=== PATIENT | female | born 1950 | race Caucasian/White ===

== ENCOUNTER 2016-09-18 10:57 | Inpatient (IN) | payer MEDICARE, MEDICAID ==
[2016-09-18 12:33] LABS: ABSOLUTE LYMPHOCYTES (AUTO) 1.7 10^3/uL (0.5-4.7); ABSOLUTE MONOCYTES (AUTO) 0.5 10^3/uL (0.1-1.4); BASOPHILS % (AUTO) 0.4 % (0-2); EOSINOPHILS % (AUTO) 0.3 % (0-6); HEMATOCRIT 42.4 % (36.0-47.0); HEMOGLOBIN 14.3 g/dL (12.0-15.5); HGB HCT DIFFERENCE 0.5; LYMPHOCYTES % (AUTO) 12.7 % (13-45); MEAN CORPUSCULAR HEMOGLOBIN 31.4 pg (27.0-33.4); MEAN CORPUSCULAR HGB CONC 33.8 g/dL (32.0-36.0); MEAN CORPUSCULAR VOLUME 93 fl (80-97); MONOCYTES % (AUTO) 3.8 % (3-13); RED BLOOD COUNT 4.56 10^6/uL (3.72-5.28); RED CELL DISTRIBUTION WIDTH 13.7 % (11.5-14.0); SEGMENTED NEUTROPHILS % (AUTO) 82.8 % (42-78); WHITE BLOOD COUNT 13.3 10^3/uL (4.0-10.5)
[2016-09-18 12:40] LABS: ALANINE AMINOTRANSFERASE 32 U/L (9-52); ALBUMIN 4.3 g/dL (3.5-5.0); ALKALINE PHOSPHATASE 130 U/L (38-126); ANION GAP 12 (5-19); ASPARTATE AMINO TRANSFERASE 48 U/L (14-36); BILIRUBIN,TOTAL 1.2 mg/dL (0.2-1.3); BLOOD UREA NITROGEN 8 mg/dL (7-20); CALCIUM 9.7 mg/dL (8.4-10.2); CARBON DIOXIDE 27 mmol/L (22-30); CHLORIDE 106 mmol/L (98-107); CREATINE KINASE 924 U/L (30-135); GLUCOSE 101 mg/dL (75-110); POTASSIUM 4.1 mmol/L (3.6-5.0); SODIUM 144.9 mmol/L (137-145); TOTAL PROTEIN 7.1 g/dL (6.3-8.2)
[2016-09-18 12:43] LABS: PROTHROMBIN TIME 12.1 SEC (11.4-15.4)
[2016-09-18 12:51] LABS: CREATINE KINASE MB 7.35 ng/mL (<4.55); TROPONIN I 0.022 ng/mL
[2016-09-18] MEDS ORDERED: NORMAL SALINE 1000 ML 500 ML IV ONE (13:32)
[2016-09-18 14:54] LABS: APPEARANCE,URINE CLEAR; BILIRUBIN,URINE NEGATIVE (NEGATIVE); GLUCOSE, URINE NEGATIVE (NEGATIVE); KETONES,URINE TRACE mg/dL (NEGATIVE); LEUKOCYTE ESTERASE,URINE NEGATIVE (NEGATIVE); NITRITE,URINE NEGATIVE (NEGATIVE); PROTEIN,URINE NEGATIVE (NEGATIVE); URINE SPECIFIC GRAVITY 1.012; UROBILINOGEN,URINE NEGATIVE mg/dL (<2.0)
--- NOTE | 2016-09-18 15:58 | ER Document Report ---
ED General - General Chief Complaint: Fall Stated Complaint: FALL,WEAKNESS TRAVEL OUTSIDE OF THE [place] IN LAST 30 DAYS: No - HPI Patient complains to provider of: multiple falls Notes: Patient coming in for evaluation of multiple falls. Family patient has fallen 3 times the last week patient states that she will bed night prior and was unable to get up therefore leg and the floor for quite some time. Patient denies any loss of consciousness. Patient denies any head pain chest pain abdominal pain prior to arrival the fall. Patient has had recent admissions here to the hospital with stress testing showing no cardiac ischemia or concerning etiology. States her PCPs of she may denies any recent changes to medications. Denies any blood thinning medications. Current family at bedside patient does have a walker that she uses at home. Patient states that she has not been using a walker. - Related Data Allergies/Adverse Reactions: No Known Allergies Allergy (Unverified 05/29/16 18:33) Past Medical History - Social History Smoking Status: Unknown if Ever Smoked Family History: Arthritis, CAD, CVA, DM, Hyperlipidemia, Hypertension, Malignancy, Thyroid Disfunction - Past Medical History Cardiac Medical History: Reports: Hx Hypercholesterolemia, Hx Hypertension Denies: Hx Coronary Artery Disease, Hx Heart Attack Pulmonary Medical History: Denies: Hx Asthma, Hx Bronchitis, Hx COPD, Hx Pneumonia Neurological Medical History: Denies: Hx Cerebrovascular Accident, Hx Seizures Musculoskeltal Medical History: Reports Hx Arthritis - ddd, Reports Hx Musculoskeletal Deformity Psychiatric Medical History: Reports: Hx Anxiety, Hx Attention Deficit Hyperactivity Disorder, Hx Bipolar Disorder, Hx Depression Past Surgical History: Reports: Hx Orthopedic Surgery - bunion surgery - Immunizations Hx Diphtheria, Pertussis, Tetanus Vaccination: No Review of Systems - Review of Systems Constitutional: No symptoms reported EENT: No symptoms reported Cardiovascular: No symptoms reported Respiratory: No symptoms reported Gastrointestinal: No symptoms reported Genitourinary: No symptoms reported Female Genitourinary: No symptoms reported Musculoskeletal: Other - Fall Skin: No symptoms reported Hematologic/Lymphatic: No symptoms reported Neurological/Psychological: No symptoms reported Physical Exam - Vital signs Vitals: Temp Pulse Resp BP Pulse Ox 97.5 F 63 20 95/57 L 95 09/18/16 11:10 09/18/16 11:10 09/18/16 11:10 09/18/16 11:10 09/18/16 11:10 Interpretation: Normal - General General appearance: Appears well, Alert - HEENT Head: Normocephalic, Abrasions - Patient with abrasions to the right orbit and the bridge of the nose. Eyes: Normal Pupils: PERRL - Respiratory Respiratory status: No respiratory distress Chest status: Nontender Breath sounds: Normal Chest palpation: Normal - Cardiovascular Rhythm: Regular Heart sounds: Normal auscultation Murmur: No - Abdominal Inspection: Normal Distension: No distension Bowel sounds: Normal Tenderness: Nontender Organomegaly: No organomegaly - Back Back: Normal, Nontender - Extremities General upper extremity: Normal inspection, Nontender, Normal color, Normal ROM , Normal temperature General lower extremity: Normal inspection, Nontender, Normal color, Normal ROM , Normal temperature, Normal weight bearing, Other - Patient's gait is unsteady without her walker here in the ER.. No: Gerhard's sign - Neurological Neuro grossly intact: Yes Cognition: Normal Orientation: AAOx4 [place] Coma Scale Eye Opening: Spontaneous Unique Coma Scale Verbal: Oriented [place] Coma Scale Motor: Obeys Commands [place] Coma Scale Total: 15 Speech: Normal Motor strength normal: LUE, RUE, LLE, RLE Sensory: Normal - Psychological Associated symptoms: Normal affect, Normal mood - Skin Skin Temperature: Warm Skin Moisture: Dry Skin Color: Normal Course - Re-evaluation Re-evalutation: 09/18/16 15:56 Patient coming in for evaluation after multiple falls. Patient does have an unsteady gait doesn't admission not been using her walker. Patient does live alone. Long discussion with friend of family at bedside recommended patient be discharged home with that there is no acute pathology on her head CT chest x- ray lab work and urinalysis. Patient case was discussed with our child protective services social worker here in the ER and will attempt to set up home health care for the patient home. 09/18/16 16:17 Now discussion with family unable to more likely take your the patient home. Patient does live by herself. We have initiated social work evaluation at home however facility unsafe to patient to go home this time the family members available did discuss with hospitalist will admit for observation tonight - Vital Signs Vital signs: Temp Pulse Resp BP Pulse Ox 97.5 F 63 13 113/77 96 09/18/16 11:10 09/18/16 11:10 09/18/16 15:00 09/18/16 14:01 09/18/16 15:00 - Laboratory Result Diagrams: 09/18/16 11:10 09/18/16 11:10 Laboratory results interpreted by me: 09/18/16 09/18/16 09/18/16 11:10 11:10 11:10 WBC 13.3 H Seg Neutrophils % 82.8 H Lymphocytes % 12.7 L Absolute Neutrophils 11.0 H AST 48 H Alkaline Phosphatase 130 H Creatine Kinase 924 H CK-MB (CK-2) 7.35 H Urine Ketones Urine Blood 09/18/16 13:35 WBC Seg Neutrophils % Lymphocytes % Absolute Neutrophils AST Alkaline Phosphatase Creatine Kinase CK-MB (CK-2) Urine Ketones TRACE H Urine Blood SMALL H Discharge - Discharge Clinical Impression: Multiple falls, Gait instability Facial abrasion Qualifiers: Encounter type: initial encounter Qualified Code(s): S00.81XA - Abrasion of other part of head, initial encounter Condition: Fair Disposition: ADMITTED OBSERVATION Admitting Provider: Hospitalist - [facility] Admitted: Medical Floor Referrals: CARMEN CHRISTINE DO [Primary Care Provider] - Follow up as needed
--- NOTE | 2016-09-18 18:57 | PDOC H&P ---
History of Present Illness Admission Date/PCP: 09/18/16 16:56 CARMEN CHRISTINE Patient complains of: Generalized weakness multiple falls. Unsteady gait History of Present Illness: RAYNA NERIQUEZ is a 66 year old female With a known history of hypertension hyperlipidemia Presents to the ED with her history of multiple falls Yesterday patient felt outside in the street and scraped her face Patient states there was no loss of consciousness but she felt extremely weak and unsteady Patient had been laying on the couch for the past 3 days Upon evaluation in the ED patient was diagnosed of rhabdomyolysis with a CPK of 900, and the urine was suggestive of UTI urinary tract infection Patient was admitted for hydration, antibiotics and PT evaluation Past Medical History Cardiac Medical History: Reports: Hyperlipidema, Hypertension Denies: Coronary Artery Disease, Myocardial Infarction Pulmonary Medical History: Denies: Asthma, Bronchitis, Chronic Obstructive Pulmonary Disease (COPD), Pneumonia Neurological Medical History: Denies: Seizures Musculoskeltal Medical History: Reports: Arthritis - ddd Psychiatric Medical History: Reports: Attention Deficit Hyperactivity Disorder, Bipolar Disorder, Depression Hematology: Denies: Anemia Past Surgical History Past Surgical History: Reports: Orthopedic Surgery - bunion surgery Social History Information Source: Patient Lives with: Alone Smoking Status: Current Every Day Smoker Cigarettes Packs Per Day: 10 Frequency of Alcohol Use: None Hx Recreational Drug Use: No Drugs: None Family History Family History: Arthritis, CAD, CVA, DM, Hyperlipidemia, Hypertension, Malignancy, Thyroid Disfunction Parental Family History Reviewed: Yes Children Family History Reviewed: Yes Sibling(s) Family History Reviewed.: Yes Medication/Allergy Home Medications: Aripiprazole [Abilify 15 mg Tablet] 15 mg PO QHS 09/18/16 Aspirin [Aspirin 81 mg Chewable Tablet] 81 mg PO DAILY 09/18/16 Atorvastatin Calcium [Lipitor 40 mg Tablet] 40 mg PO DAILY 09/18/16 Clonazepam [Klonopin] 1 mg PO TID 09/18/16 Hydrochlorothiazide [Hydrodiuril 25 mg Tablet] 25 mg PO DAILY 09/18/16 Trazodone HCl [Desyrel] 200 mg PO QHS 09/18/16 Vortioxetine Hydrobromide [Brintellix] 10 mg PO QAM 09/18/16 Allergies/Adverse Reactions: No Known Allergies Allergy (Unverified 05/29/16 18:33) Review of Systems Constitutional: PRESENT: fatigue, weakness. ABSENT: anorexia, fever(s), night sweats Eyes: ABSENT: visual disturbances Ears: ABSENT: hearing changes Nose, Mouth, and Throat: ABSENT: as per HPI, headache(s), mouth pain, sore throat, vertigo, other Cardiovascular: ABSENT: chest pain, dyspnea on exertion, edema, orthropnea, palpitations Respiratory: ABSENT: cough, hemoptysis Genitourinary: ABSENT: dysuria, hematuria Musculoskeletal: PRESENT: muscle weakness Integumentary: ABSENT: rash, wounds Neurological: PRESENT: abnormal gait, frequent falls, lack of coordination. ABSENT: focal weakness Endocrine: ABSENT: cold intolerance, heat intolerance, polydipsia, polyuria Hematologic/Lymphatic: ABSENT: easy bleeding, easy bruising Physical Exam Vital Signs: Temp Pulse Resp BP Pulse Ox 97.5 F 63 14 102/61 97 09/18/16 11:10 09/18/16 11:10 09/18/16 18:00 09/18/16 15:01 09/18/16 18:00 General appearance: PRESENT: no acute distress, well-developed, well-nourished Head exam: PRESENT: other - Multiple abrasions , ecchymosis visualized on the nose and in the right periorbital area Mouth exam: PRESENT: moist, tongue midline Neck exam: ABSENT: carotid bruit, JVD, lymphadenopathy, thyromegaly Respiratory exam: PRESENT: clear to auscultation kaycee. ABSENT: rales, rhonchi, wheezes Cardiovascular exam: PRESENT: RRR. ABSENT: diastolic murmur, rubs, systolic murmur Pulses: PRESENT: normal dorsalis pedis pul GI/Abdominal exam: PRESENT: normal bowel sounds, soft. ABSENT: distended, guarding, mass, organolmegaly, rebound, tenderness Extremities exam: PRESENT: full ROM. ABSENT: calf tenderness, clubbing, pedal edema Neurological exam: PRESENT: alert, awake, oriented to person, oriented to place , oriented to time, oriented to situation, CN II-XII grossly intact. ABSENT: motor sensory deficit Psychiatric exam: PRESENT: appropriate affect, other - Maybe appears a little sluggish Skin exam: PRESENT: abrasion, other - Ecchymosis of the face see above Results Laboratory Results: Labs- Entire Visit 09/18/16 09/18/16 09/18/16 11:10 11:10 11:10 WBC 13.3 H RBC 4.56 Hgb 14.3 Hct 42.4 MCV 93 MCH 31.4 MCHC 33.8 RDW 13.7 Plt Count 233 Seg Neutrophils % 82.8 H Lymphocytes % 12.7 L Monocytes % 3.8 Eosinophils % 0.3 Basophils % 0.4 Absolute Neutrophils 11.0 H Absolute Lymphocytes 1.7 Absolute Monocytes 0.5 Absolute Eosinophils 0.0 Absolute Basophils 0.0 PT 12.1 INR 0.88 Sodium 144.9 Potassium 4.1 Chloride 106 Carbon Dioxide 27 Anion Gap 12 BUN 8 Creatinine 0.60 Est GFR ( Amer) > 60 Est GFR (Non-Af Amer) > 60 Glucose 101 Calcium 9.7 Total Bilirubin 1.2 Direct Bilirubin 0.0 AST 48 H ALT 32 Alkaline Phosphatase 130 H Creatine Kinase 924 H CK-MB (CK-2) Troponin I Total Protein 7.1 Albumin 4.3 Urine Color Urine Appearance Urine pH Ur Specific Golden Urine Protein Urine Glucose (UA) Urine Ketones Urine Blood Urine Nitrite Urine Bilirubin Urine Urobilinogen Ur Leukocyte Esterase Urine WBC (Auto) Urine RBC (Auto) Squamous Epi Cells Auto Urine Mucus (Auto) Urine Ascorbic Acid 09/18/16 09/18/16 11:10 13:35 WBC RBC Hgb Hct MCV MCH MCHC RDW Plt Count Seg Neutrophils % Lymphocytes % Monocytes % Eosinophils % Basophils % Absolute Neutrophils Absolute Lymphocytes Absolute Monocytes Absolute Eosinophils Absolute Basophils PT INR Sodium Potassium Chloride Carbon Dioxide Anion Gap BUN Creatinine Est GFR ( Amer) Est GFR (Non-Af Amer) Glucose Calcium Total Bilirubin Direct Bilirubin AST ALT Alkaline Phosphatase Creatine Kinase CK-MB (CK-2) 7.35 H Troponin I 0.022 Total Protein Albumin Urine Color YELLOW Urine Appearance CLEAR Urine pH 5.0 Ur Specific Golden 1.012 Urine Protein NEGATIVE Urine Glucose (UA) NEGATIVE Urine Ketones TRACE H Urine Blood SMALL H Urine Nitrite NEGATIVE Urine Bilirubin NEGATIVE Urine Urobilinogen NEGATIVE Ur Leukocyte Esterase NEGATIVE Urine WBC (Auto) 2 Urine RBC (Auto) 0 Squamous Epi Cells Auto <1 Urine Mucus (Auto) OCC Urine Ascorbic Acid NEGATIVE Impressions: Chest X-Ray 09/18/16 12:05 IMPRESSION: NO SIGNIFICANT RADIOGRAPHIC FINDING IN THE CHEST. Head CT 09/18/16 12:05 IMPRESSION: MILD CHRONIC CHANGES OF ATROPHY AND MICROVASCULAR ISCHEMIA. NO ACUTE PROCESS. Assessment & Plan - Diagnosis (1) Rhabdomyolysis Qualifiers: Rhabdomyolysis type: traumatic Is this a current diagnosis for this admission?: YesPlan: Was treated with IV hydration with normal saline at 200 mL/h Repeat CPK in a.m. Admit telemetry (2) UTI (urinary tract infection) Qualifiers: Encounter type: subsequent encounter Is this a current diagnosis for this admission?: YesPlan: Patient had recurrent UTI with Klebsiella sensitive to ceftriaxone Treat with ceftriaxone (3) Facial abrasion Qualifiers: Encounter type: initial encounter Qualified Code(s): S00.81XA - Abrasion of other part of head, initial encounter (4) Gait instability Is this a current diagnosis for this admission?: Yes - Time Time Spent with patient: Patient may have an acute myositis with muscle aches; high CPK We will order a sedimentation rate and CRP as screening tests and reevaluate in a.m. - Inpatient Certification Based on my medical assessment, after consideration of the patient's comorbidities, presenting symptoms, or acuity I expect that the services needed warrant INPATIENT care.: Yes I certify that my determination is in accordance with my understanding of Medicare's requirements for reasonable and necessary INPATIENT services [42 CFR 412.3e].: Yes Medical Necessity: Need For IV Fluids, Need For Continuous Telemetry Monitoring
[2016-09-18] MEDS ORDERED: MUPIROCIN 2% OINTMENT 22 GM TP ONE (19:15)
[2016-09-18] MEDS: DIPHENHYDRAMINE HCL 25 MG CAPSULE PO SCH (21:14)
[2016-09-18] MEDS: CEFTRIAXONE 1 GM/D5W RTU 1 GM/50 ML RTUPB IV SCH (21:15)
[2016-09-18] MEDS: NORMAL SALINE 1000 ML 1,000 ML IV PRN (23:52)
--- NOTE | 2016-09-19 00:10 | EKG REPORT ---
SEVERITY:- NORMAL ECG - SINUS RHYTHM : Confirmed by: Chris Montana 19-Sep-2016 00:09:35
[2016-09-19] MEDS: NORMAL SALINE 1000 ML 1,000 ML IV PRN ×2 (04:52→10:35)
[2016-09-19 08:43] LABS: ALANINE AMINOTRANSFERASE 34 U/L (9-52); ALBUMIN 2.7 g/dL (3.5-5.0); ALKALINE PHOSPHATASE 91 U/L (38-126); ANION GAP 8 (5-19); ASPARTATE AMINO TRANSFERASE 30 U/L (14-36); BLOOD UREA NITROGEN 8 mg/dL (7-20); CARBON DIOXIDE 24 mmol/L (22-30); CHLORIDE 112 mmol/L (98-107); CREATINE KINASE 663 U/L (30-135); GLUCOSE 82 mg/dL (75-110); POTASSIUM 3.5 mmol/L (3.6-5.0); SODIUM 144.1 mmol/L (137-145); TOTAL PROTEIN 5.5 g/dL (6.3-8.2)
[2016-09-19 08:53] LABS: CREATINE KINASE MB 3.75 ng/mL (<4.55)
[2016-09-19] MEDS: ENOXAPARIN SODIUM INJ 40 MG/0.4 ML DISP.SYRIN SUBCUT SCH (08:53)
[2016-09-19 08:54] LABS: TROPONIN I < 0.012 ng/mL
[2016-09-19] MEDS: MUPIROCIN 2% OINTMENT 22 GM TP SCH ×2 (11:03→19:48)
--- NOTE | 2016-09-19 11:05 | EKG REPORT ---
SEVERITY:- BORDERLINE ECG - SINUS RHYTHM BORDERLINE T ABNORMALITIES, ANTERIOR LEADS : Confirmed by: Chris Montana 19-Sep-2016 11:04:02
[2016-09-19] MEDS ORDERED: NORMAL SALINE 1000 ML 1,000 ML IV PRN ×2 (13:14→13:43)
--- NOTE | 2016-09-19 13:42 | PDOC PROGRESS REPORT ---
Subjective Progress Note for:: 09/19/16 Subjective:: Patient is still fatigued but able to ambulate with physical therapy She's no chest pain shortness of breath abdominal pain nausea or vomiting She still on IV fluids and his CPK has come down to 600 She was evaluated by physical therapy and could be discharged with home PT Patient does not wish to go to inpatient rehabilitation Physical Exam Vital Signs: Temp Pulse Resp BP Pulse Ox 98.0 F 63 16 111/66 100 09/19/16 11:53 09/19/16 11:53 09/19/16 11:53 09/19/16 11:53 09/19/16 11:53 Intake & Output 09/18/16 09/19/16 09/20/16 00:59 00:59 00:59 Intake Total 1157 Output Total 300 Balance 857 Weight 93.1 kg General appearance: PRESENT: no acute distress, well-developed, well-nourished Head exam: PRESENT: atraumatic, normocephalic Eye exam: PRESENT: conjunctiva pink, EOMI, PERRLA. ABSENT: scleral icterus Ear exam: PRESENT: normal external ear exam Mouth exam: PRESENT: moist, tongue midline Neck exam: ABSENT: carotid bruit, JVD, lymphadenopathy, thyromegaly Respiratory exam: PRESENT: clear to auscultation kaycee. ABSENT: rales, rhonchi, wheezes Cardiovascular exam: PRESENT: RRR. ABSENT: diastolic murmur, rubs, systolic murmur Pulses: PRESENT: normal dorsalis pedis pul Vascular exam: PRESENT: normal capillary refill GI/Abdominal exam: PRESENT: normal bowel sounds, soft. ABSENT: distended, guarding, mass, organolmegaly, rebound, tenderness Rectal exam: PRESENT: deferred Extremities exam: PRESENT: full ROM. ABSENT: calf tenderness, clubbing, pedal edema Neurological exam: PRESENT: alert, awake, oriented to person, oriented to place , oriented to time, oriented to situation, CN II-XII grossly intact. ABSENT: motor sensory deficit Psychiatric exam: PRESENT: appropriate affect, normal mood. ABSENT: homicidal ideation, suicidal ideation Skin exam: PRESENT: dry, intact, warm. ABSENT: cyanosis, rash Results Laboratory Results: 09/19/16 08:00 09/18/16 09/19/16 09/19/16 19:30 08:00 08:00 Sodium 144.1 Potassium 3.5 L Chloride 112 H Carbon Dioxide 24 Anion Gap 8 BUN 8 Creatinine 0.70 Est GFR ( Amer) > 60 Est GFR (Non-Af Amer) > 60 Glucose 82 Calcium 9.0 Total Bilirubin 1.0 AST 30 ALT 34 Alkaline Phosphatase 91 C-Reactive Protein 55.1 H Total Protein 5.5 L Albumin 2.7 L TSH 4.05 09/18/16 09/19/16 09/19/16 19:30 01:30 08:00 Creatine Kinase CK-MB (CK-2) 3.75 Troponin I 0.016 0.015 < 0.012 09/19/16 08:00 Creatine Kinase 663 H CK-MB (CK-2) Troponin I Impressions: Chest X-Ray 09/18/16 12:05 IMPRESSION: NO SIGNIFICANT RADIOGRAPHIC FINDING IN THE CHEST. Head CT 09/18/16 12:05 IMPRESSION: MILD CHRONIC CHANGES OF ATROPHY AND MICROVASCULAR ISCHEMIA. NO ACUTE PROCESS. Assessment & Plan - Diagnosis (1) Rhabdomyolysis Qualifiers: Rhabdomyolysis type: traumatic Is this a current diagnosis for this admission?: Yes (2) UTI (urinary tract infection) Qualifiers: Encounter type: subsequent encounter Is this a current diagnosis for this admission?: Yes (3) Facial abrasion Qualifiers: Encounter type: initial encounter Qualified Code(s): S00.81XA - Abrasion of other part of head, initial encounter (4) Gait instability Is this a current diagnosis for this admission?: Yes - Time Time Spent with patient: We will continue hydration ;decrease IV fluids 125 mL/h Repeat CPK in a.m. Patient may be discharged with home health tomorrow Time Spent with patient: 25-34 minutes
[2016-09-19] MEDS ORDERED: POTASSIUM CHLORIDE 10 MEQ TABLET.SA PO ONE (14:15)
[2016-09-19] MEDS: DIPHENHYDRAMINE HCL 25 MG CAPSULE PO SCH (21:23)
[2016-09-19] MEDS: CEFTRIAXONE 1 GM/D5W RTU 1 GM/50 ML RTUPB IV SCH (21:23)
[2016-09-19] MEDS ORDERED: ARIPIPRAZOLE 5 MG TABLET PO SCH (22:00)
[2016-09-19] MEDS ORDERED: TRAZODONE HCL 50 MG TABLET PO SCH (22:00)
[2016-09-19] MEDS ORDERED: ARIPIPRAZOLE 5 MG PO SCH (22:00)
[2016-09-19] MEDS ORDERED: CLONAZEPAM 1 MG TABLET PO SCH (22:00)
[2016-09-19] MEDS ORDERED: (PENDING PHARMACY ID) (Trazodone Hcl [Desyrel] 100 MG) PO SCH (22:00)
[2016-09-20 05:53] LABS: ABSOLUTE BASOPHILS # (AUTO) 0.1 10^3/uL (0.0-0.2); ABSOLUTE EOSINOPHILS # (AUTO) 0.4 10^3/uL (0.0-0.6); ABSOLUTE LYMPHOCYTES (AUTO) 3.5 10^3/uL (0.5-4.7); ABSOLUTE MONOCYTES (AUTO) 0.3 10^3/uL (0.1-1.4); ABSOLUTE NEUT (AUTO) 4.3 10^3/uL (1.7-8.2); BASOPHILS % (AUTO) 0.6 % (0-2); EOSINOPHILS % (AUTO) 4.3 % (0-6); HGB HCT DIFFERENCE 1.1; LYMPHOCYTES % (AUTO) 40.6 % (13-45); MEAN CORPUSCULAR HEMOGLOBIN 32.1 pg (27.0-33.4); MEAN CORPUSCULAR HGB CONC 34.5 g/dL (32.0-36.0); MEAN CORPUSCULAR VOLUME 93 fl (80-97); MONOCYTES % (AUTO) 3.9 % (3-13); RED BLOOD COUNT 3.65 10^6/uL (3.72-5.28); RED CELL DISTRIBUTION WIDTH 13.6 % (11.5-14.0); SEGMENTED NEUTROPHILS % (AUTO) 50.6 % (42-78); WHITE BLOOD COUNT 8.6 10^3/uL (4.0-10.5)
[2016-09-20 05:59] LABS: HEMOGLOBIN 11.7 g/dL (12.0-15.5)
[2016-09-20 06:11] LABS: ANION GAP 9 (5-19); BLOOD UREA NITROGEN 9 mg/dL (7-20); CALCIUM 8.4 mg/dL (8.4-10.2); CARBON DIOXIDE 20 mmol/L (22-30); CHLORIDE 114 mmol/L (98-107); CREATININE RESULT 0.67 mg/dL (0.52-1.25); GLUCOSE 80 mg/dL (75-110); POTASSIUM 4.1 mmol/L (3.6-5.0); SODIUM 142.6 mmol/L (137-145)
[2016-09-20] MEDS: ENOXAPARIN SODIUM INJ 40 MG/0.4 ML DISP.SYRIN SUBCUT SCH (08:03)
[2016-09-20] MEDS: MUPIROCIN 2% OINTMENT 22 GM TP SCH (09:31)
[2016-09-20 11:57] VITALS: BP 120/67
--- NOTE | 2016-09-20 17:03 | PDOC DISCHARGE SUMMARY ---
General - Admit/Disc Date/PCP Admission Date/Primary Care Provider: 09/18/16 18:23 CARMEN HERR Discharge Date: 09/20/16 - Discharge Diagnosis (1) Rhabdomyolysis Is this a current diagnosis for this admission?: YesSummary: CPK was 900 on admission Rhabdomyolysis likely secondary to fall ; improved with IV fluids Renal function remained intact CPD was 400 at discharge (2) UTI (urinary tract infection) Is this a current diagnosis for this admission?: YesSummary: Patient was treated with IV Ceftriaxone for 3 days The urine culture was negative although the UA was suggestive of UTI (3) Facial abrasion Is this a current diagnosis for this admission?: YesSummary: healed slowly Bactroban was ordered no nasal bones fracture was documented on Head CT (4) Gait instability Is this a current diagnosis for this admission?: YesSummary: Patient ambulated better with rolling walker at discharge She was discharged with Home Health and Home PT - Additional Information Discharge Diet: As Tolerated Discharge Activity: Activity As Tolerated Home Medications: Aripiprazole [Abilify 15 mg Tablet] 15 mg PO QHS 09/18/16 Aspirin [Aspirin 81 mg Chewable Tablet] 81 mg PO DAILY 09/18/16 Atorvastatin Calcium [Lipitor 40 mg Tablet] 40 mg PO DAILY 09/18/16 Clonazepam [Klonopin] 1 mg PO TID 09/18/16 Hydrochlorothiazide [Hydrodiuril 25 mg Tablet] 25 mg PO DAILY 09/18/16 Vortioxetine Hydrobromide [Trintellix] 10 mg PO QAM 09/18/16 Mupirocin [Bactroban 2% Ointment 22 gm] 1 applic TP BID #1 tube 09/20/16 Trazodone HCl [Desyrel 50 mg Tablet] 100 mg PO QHS #30 tablet 09/20/16 History of Present Illness Patient complains of: weakness unable to ambulate History of Present Illness: RAYNA ENRIQUEZ is a 66 year old female With a known history of hypertension hyperlipidemia Presents to the ED with her history of multiple falls Yesterday patient felt outside in the street and scraped her face Patient states there was no loss of consciousness but she felt extremely weak and unsteady Patient had been laying on the couch for the past 3 days Upon evaluation in the ED patient was diagnosed of rhabdomyolysis with a CPK of 900, and the urine was suggestive of UTI urinary tract infection Patient was admitted for hydration, antibiotics and PT evaluation Hospital Course Hospital Course: see above Physical Exam Vital Signs: Temp Pulse Resp BP Pulse Ox 98.0 F 68 15 120/67 100 09/20/16 11:57 09/20/16 11:57 09/20/16 11:57 09/20/16 11:57 09/20/16 11:57 Intake & Output 09/19/16 09/20/16 09/21/16 00:59 00:59 00:59 Intake Total 3801 890 Output Total 550 300 Balance 3251 590 Weight 93.1 kg 93 kg General appearance: PRESENT: no acute distress, well-developed, well-nourished Head exam: PRESENT: atraumatic, normocephalic Eye exam: PRESENT: conjunctiva pink, EOMI, PERRLA, other - abrasions nose and right periorbital area healing. ABSENT: scleral icterus Ear exam: PRESENT: normal external ear exam Mouth exam: PRESENT: moist, tongue midline Neck exam: ABSENT: carotid bruit, JVD, lymphadenopathy, thyromegaly Respiratory exam: PRESENT: clear to auscultation kaycee. ABSENT: rales, rhonchi, wheezes Cardiovascular exam: PRESENT: RRR. ABSENT: diastolic murmur, rubs, systolic murmur Pulses: PRESENT: normal dorsalis pedis pul Vascular exam: PRESENT: normal capillary refill GI/Abdominal exam: PRESENT: normal bowel sounds, soft. ABSENT: distended, guarding, mass, organolmegaly, rebound, tenderness Rectal exam: PRESENT: deferred Extremities exam: PRESENT: full ROM. ABSENT: calf tenderness, clubbing, pedal edema Neurological exam: PRESENT: alert, awake, oriented to person, oriented to place , oriented to time, oriented to situation, CN II-XII grossly intact. ABSENT: motor sensory deficit Psychiatric exam: PRESENT: appropriate affect, normal mood. ABSENT: homicidal ideation, suicidal ideation Skin exam: PRESENT: dry, intact, warm. ABSENT: cyanosis, rash Results Laboratory Results: 09/20/16 05:07 09/20/16 05:07 09/20/16 09/20/16 05:07 05:07 WBC 8.6 RBC 3.65 L Hgb 11.7 L D Hct 34.0 L MCV 93 MCH 32.1 MCHC 34.5 RDW 13.6 Plt Count 178 Seg Neutrophils % 50.6 Lymphocytes % 40.6 Monocytes % 3.9 Eosinophils % 4.3 Basophils % 0.6 Absolute Neutrophils 4.3 Absolute Lymphocytes 3.5 Absolute Monocytes 0.3 Absolute Eosinophils 0.4 Absolute Basophils 0.1 Sodium 142.6 Potassium 4.1 Chloride 114 H Carbon Dioxide 20 L Anion Gap 9 BUN 9 Creatinine 0.67 Est GFR ( Amer) > 60 Est GFR (Non-Af Amer) > 60 Glucose 80 Calcium 8.4 09/18/16 09/19/16 09/19/16 19:30 01:30 08:00 Creatine Kinase CK-MB (CK-2) 3.75 Troponin I 0.016 0.015 < 0.012 09/19/16 09/20/16 08:00 05:07 Creatine Kinase 663 H 400 H CK-MB (CK-2) Troponin I Impressions: Chest X-Ray 09/18/16 12:05 IMPRESSION: NO SIGNIFICANT RADIOGRAPHIC FINDING IN THE CHEST. Head CT 09/18/16 12:05 IMPRESSION: MILD CHRONIC CHANGES OF ATROPHY AND MICROVASCULAR ISCHEMIA. NO ACUTE PROCESS. Plan Discharge Plan: Home with services follow up with Dr Herr in 1 week
== END 2016-09-20 12:29 | disposition home health service (06) | DRG 565 ==
LOC: ER 10:57 → EH 16:56 → OBSVTOIN 18:23 → 4W 22:04
PROVIDERS: ADMIT Emergency Medicine; ATTEND Emergency Medicine
DX: T79.6XXA Traumatic ischemia of muscle, initial encounter (principal); N39.0 Urinary tract infection, site not specified; F17.210 Nicotine dependence, cigarettes, uncomplicated; B96.1 Klebsiella pneumoniae [K. pneumoniae] as the cause of diseases classified elsewhere; R26.9 Unspecified abnormalities of gait and mobility; F31.9 Bipolar disorder, unspecified; E78.5 Hyperlipidemia, unspecified; M19.90 Unspecified osteoarthritis, unspecified site; I10 Essential (primary) hypertension; E78.00 Pure hypercholesterolemia, unspecified; S00.81XA Abrasion of other part of head, initial encounter; W18.30XA Fall on same level, unspecified, initial encounter; Z82.61 Family history of arthritis; Z82.49 Family history of ischemic heart disease and other diseases of the circulatory system; Z82.3 Family history of stroke; Z79.82 Long term (current) use of aspirin; Z91.81 History of falling; Z80.9 Family history of malignant neoplasm, unspecified
CPT/HCPCS: 36415; 70450; 71010; 80048; 80053; 81001; 82550; 82553; 84443; 84484; 85025; 85610; 85652; 86140; 87040; 87086; 93005; 93010; 96361; 96365; 99285; G8978-GP; G8979-GP; J0696; J1650; J3490; J7030

== ENCOUNTER → 2017-03-28 | Outpatient (CLI) | payer MEDICARE, MEDICAID ==
--- NOTE | 2017-03-28 15:47 | WOMENS IMAGING REPORT ---
EXAM DESCRIPTION: BILAT SCREENING MAMMO W/CAD COMPLETED DATE/TIME: 03/28/2017 12:57 pm REASON FOR STUDY: ENCOUNTER FOR SCREENING MAMMO Z12.31 Z12.31 ENCNTR SCREEN MAMMOGRAM FOR MALIGNANT NEOPLASM OF JAYY COMPARISON: 2013 TECHNIQUE: Standard craniocaudal and mediolateral oblique views of each breast recorded using Shoot it!a l acquisition. LIMITATIONS: None. FINDINGS: Findings present which are benign by mammographic criteria. No suspicious masses, calcifi cations or architectural distortion. Pertinent benign findings: Benign calcifications right upper outer quadrant. Read with the assistance of CAD. .[facility] - R2 Cenova Version 1.3 .[facility] - R2 Cenova Version 1.3 .[facility] - R2 Cenova Version 2.4 .[facility] [place] R2 Cenova Version 2.4 .[facility] - R2 Woodworker Version 9.2 Benign mammographic findings may include one or more of the following: Smooth masses, popcorn/rim/co arse calcifications, asymmetries, post-procedure changes, and lesions with long-standing stability. IMPRESSION: BENIGN MAMMOGRAPHIC FINDINGS. BIRADS 2 BREAST DENSITY: c. The breasts are heterogeneously dense, which may obscure small masses. BIRAD: 2 BENIGN FINDING(S) RECOMMENDATION: ROUTINE SCREENING COMMENT: The patient has been notified of the results by letter per MQSA requirements. Additional no tification policies are in place for contacting patient with suspicious or incomplete findings. Quality ID #[id number]: The [employer] recommends an annual screening mammogram for women aged 40 years or over. This facility utilizes a reminder system to ensure that all patients receive reminder letters, and/or direct phone calls for appointments. This includes reminders for routine scr eening mammograms, diagnostic mammograms, or other Breast Imaging Interventions when appropriate. Th is patient will be placed in the appropriate reminder system. The [employer] (ACR) has developed recommendations for screening MRI of the breast s in certain patient populations, to be used in conjunction with mammography. Breast MRI surveillanc e may be appropriate for women with more than 20% lifetime risk of developing breast cancer as deter mined by genetic testing, significant family history of the disease, or history of mantle radiation f or Hodgkins Disease. ACR Practice Guidelines 2008. TECHNICAL DOCUMENTATION: FINDING NUMBER: (1) ASSESSMENT: (1) JOB ID: [id number] [employer]- All Rights Reserved
== END ==
LOC: WI 12:33
PROVIDERS: ATTEND Student in an Organized Health Care Education/Training Program
DX: Z12.31 Encounter for screening mammogram for malignant neoplasm of breast (principal)
CPT/HCPCS: 77067; G0202

== ENCOUNTER 2017-04-25 19:52 | Emergency (ER) | payer MEDICARE, MEDICAID ==
[2017-04-25] MEDS ORDERED: LIDOCAINE 5% (700 MG) TRANSDERMAL ADH..PATCH TP ONE (20:17)
[2017-04-25] MEDS ORDERED: ACETAMINOPHEN 325 MG TABLET PO ONE (20:17)
--- NOTE | 2017-04-25 21:22 | RADIOLOGY REPORT (SQ) ---
EXAM DESCRIPTION: CHEST SINGLE VIEW COMPLETED DATE/TIME: 04/25/2017 9:12 pm REASON FOR STUDY: PRE OP COMPARISON: 01/22/2008 EXAM PARAMETERS: NUMBER OF VIEWS: One view. TECHNIQUE: Single frontal radiographic view of the chest acquired. RADIATION DOSE: NA LIMITATIONS: Low lung volumes. FINDINGS: LUNGS AND PLEURA: Interstitial markings are prominent. No consolidation or effusions. MEDIASTINUM AND HILAR STRUCTURES: There is fullness in the hilar regions bilaterally right greater th an left. This most likely is secondary to portable supine technique. HEART AND VASCULAR STRUCTURES: Heart normal in size. Normal vasculature. BONES: No acute findings. HARDWARE: None in the chest. OTHER: No other significant finding. IMPRESSION: Prominent interstitial markings most likely secondary to low lung volumes. A component of vascular congestion cannot be excluded. TECHNICAL DOCUMENTATION: JOB ID: [id number]
--- NOTE | 2017-04-25 21:23 | RADIOLOGY REPORT (SQ) ---
EXAM DESCRIPTION: HIP RIGHT AP/LATERAL COMPLETED DATE/TIME: 04/25/2017 9:12 pm REASON FOR STUDY: fall, right hip pain COMPARISON: None. NUMBER OF VIEWS: Two views. TECHNIQUE: AP and frog-leg view of the right hip. LIMITATIONS: None. FINDINGS: MINERALIZATION: Normal. RIGHT HIP: There is a subcapital right hip fracture. OPPOSITE HIP: No fracture or dislocation. No worrisome bone lesions. SOFT TISSUES: No findings. OTHER: No other significant finding. IMPRESSION: Subcapital right hip fracture. TECHNICAL DOCUMENTATION: JOB ID: [id number] [employer]- All Rights Reserved
[2017-04-25] MEDS ORDERED: MORPHINE SULFATE 10 MG/ML INJ IV PRN (21:56)
--- NOTE | 2017-04-25 21:57 | ER Document Report ---
ED General - General Chief Complaint: Hip Pain Stated Complaint: FALL/HIP PAIN Time Seen by Provider: 04/25/17 20:03 Notes: Patient is a 66-year-old female without past medical history, current everyday tobacco user who presents with right hip pain after she fell will try to take her shoes off. States that she lost her balance and fell directly onto her right hip. Since that time she has had a constant, dull, aching pain to the area. Movement worsens the pain. She has not tried anything for relief of the pain. No history of similar injury in the past. No known history of osteoporosis. She denies any additional injuries. No head or neck injury. Denies any syncopal symptoms before the fall today. TRAVEL OUTSIDE OF THE [place] IN LAST 30 DAYS: No - Related Data Allergies/Adverse Reactions: No Known Allergies Allergy (Unverified 05/29/16 18:33) Past Medical History - General Information source: Patient - Social History Smoking Status: Current Every Day Smoker Frequency of alcohol use: None Drug Abuse: None Family History: Arthritis, CAD, CVA, DM, Hyperlipidemia, Hypertension, Malignancy, Thyroid Disfunction - Past Medical History Cardiac Medical History: Reports: Hx Hypercholesterolemia, Hx Hypertension Denies: Hx Coronary Artery Disease, Hx Heart Attack Pulmonary Medical History: Reports: Hx COPD Denies: Hx Asthma, Hx Bronchitis, Hx Pneumonia Neurological Medical History: Denies: Hx Cerebrovascular Accident, Hx Seizures Musculoskeltal Medical History: Reports Hx Arthritis - ddd, Reports Hx Musculoskeletal Deformity Psychiatric Medical History: Reports: Hx Anxiety, Hx Attention Deficit Hyperactivity Disorder, Hx Bipolar Disorder, Hx Depression Past Surgical History: Reports: Hx Orthopedic Surgery - bunion surgery - Immunizations Hx Diphtheria, Pertussis, Tetanus Vaccination: No Review of Systems - Review of Systems Notes: Constitutional: Negative for fever. Eyes: Negative for visual changes. ENT: Negative for facial injury Cardiovascular: Negative for chest injury. Respiratory: Negative for shortness of breath. Gastrointestinal: Negative for abdominal injury. Genitourinary: Negative for genital injury Musculoskeletal: Positive for left hip injury Skin: Negative for laceration/abrasions. Neurological: Negative for head injury. Physical Exam - Vital signs Vitals: Temp Pulse Resp BP Pulse Ox 98.2 F 80 14 120/86 H 93 04/25/17 20:03 04/25/17 20:03 04/25/17 20:03 04/25/17 20:03 04/25/17 20:03 Interpretation: Normal Notes: PHYSICAL EXAMINATION: GENERAL: Well-appearing, no acute distress. HEAD: Atraumatic, normocephalic. EYES: Pupils equal round and reactive to light, extraocular movements intact, sclera anicteric, conjunctiva are normal. ENT: nares patent, no oral pharyngeal trauma. No hemotympanum, no Varner's sign , no raccoon eyes. NECK: No midline cervical spine tenderness. Patient able to move their head to 45 bilaterally without any discomfort. LUNGS: Breath sounds clear to auscultation bilaterally and equal. No wheezes rales or rhonchi. HEART: Regular rate and rhythm without murmurs. CHEST WALL: No ecchymosis over the chest wall. ABDOMEN: Soft, nontender, normoactive bowel sounds. No guarding, no rebound. No abdominal bruising EXTREMITIES: There is 1 cm of shortening and external rotation of the right lower extremity. Pain on palpation of the right hip. No additional extremity findings BACK: No midline spinal tenderness, step-offs, or deformities. NEUROLOGICAL: Moves all extremities spontaneously and on command PSYCH: Normal mood, normal affect. SKIN: Warm, Dry, normal turgor, no rashes or lesions noted. Course - Re-evaluation Re-evalutation: 04/25/17 21:56 Patient presents after a mechanical fall landing on her right hip. She did not sustain any additional injuries. Unfortunately her x-ray does show a right subcapital fracture. No additional injuries. She will require transfer. 04/25/17 22:07 We do not have any orthopedic surgery for the next week so I have discussed this case with Dr. Olivares at [facility] who has accepted her for transfer to [facility]. [id number]-transport has arrived for transfer. Patient is stable for transfer at this time. - Vital Signs Vital signs: Temp Pulse Resp BP Pulse Ox 98.2 F 80 15 113/87 H 89 L 04/25/17 20:03 04/25/17 20:03 04/25/17 23:23 04/25/17 23:23 04/25/17 23:23 - Diagnostic Test Radiology reviewed: Image reviewed, Reports reviewed Radiology results interpreted by me: 04/26/17 02:58 Right hip x-ray: Right subcapital fracture Discharge - Discharge Clinical Impression: Closed right hip fracture Qualifiers: Encounter type: initial encounter Qualified Code(s): S72.001A - Fracture of unspecified part of neck of right femur, initial encounter for closed fracture Fall Qualifiers: Encounter type: initial encounter Qualified Code(s): W19.XXXA - Unspecified fall, initial encounter Condition: Fair Disposition: [facility] Referrals: CARMEN CHRISTINE DO [Primary Care Provider] - Follow up as needed
[2017-04-25 23:28] VITALS: BP 113/87
== END 2017-04-25 23:28 | disposition short-term general hospital (02) ==
LOC: ER 19:52
DX: S72.001A Fracture of unspecified part of neck of right femur, initial encounter for closed fracture (principal); M25.551 Pain in right hip; W19.XXXA Unspecified fall, initial encounter; F17.200 Nicotine dependence, unspecified, uncomplicated
CPT/HCPCS: 99285; 96374; 71010; 73502; A9270; J2270

== ENCOUNTER → 2018-09-30 | Outpatient (CLI) | payer MEDICARE, MEDICAID ==
--- NOTE | 2018-10-07 17:15 | WOMENS IMAGING REPORT ---
EXAM DESCRIPTION: BILAT SCREENING MAMMO W/CAD COMPLETED DATE/TIME: 09/30/2018 12:14 pm REASON FOR STUDY: ROUTINE BILATERAL SCREENING,Z12.31 Z12.31 ENCNTR SCREEN MAMMOGRAM FOR MALIGNANT N EOPLASM OF JAYY COMPARISON: 2013, 2016 TECHNIQUE: Standard craniocaudal and mediolateral oblique views of each breast recorded using [employer] acquisition. LIMITATIONS: None. FINDINGS: No masses, calcifications or architectural distortion. No areas of suspicion. Read with the assistance of CAD. .[facility] - R2 Cenova Version 1.3 .[facility] - R2 Cenova Version 1.3 .[facility] - R2 Cenova Version 2.4 .[facility] [place] - R2 Cenova Version 2.4 .[facility] - R2 Tack Maker Version 9.2 IMPRESSION: NORMAL MAMMOGRAM. BIRADS 1. BREAST DENSITY: b. There are scattered areas of fibroglandular density. BIRAD: 1 NEGATIVE RECOMMENDATION: ROUTINE SCREENING COMMENT: The patient has been notified of the results by letter per MQSA requirements. Additional no tification policies are in place for contacting patient with suspicious or incomplete findings. Quality ID #225: The [employer] recommends an annual screening mammogram for women aged 40 years or over. This facility utilizes a reminder system to ensure that all patients receive reminder letters, and/or direct phone calls for appointments. This includes reminders for routine scr eening mammograms, diagnostic mammograms, or other Breast Imaging Interventions when appropriate. Th is patient will be placed in the appropriate reminder system. The [employer] (ACR) has developed recommendations for screening MRI of the breast s in certain patient populations, to be used in conjunction with mammography. Breast MRI surveillanc e may be appropriate for women with more than 20% lifetime risk of developing breast cancer as deter mined by genetic testing, significant family history of the disease, or history of mantle radiation f or Hodgkins Disease. ACR Practice Guidelines 2008. TECHNICAL DOCUMENTATION: FINDING NUMBER: (1) ASSESSMENT: (1) JOB ID: [id number] [employer]- All Rights Reserved Reading location - IP/workstation name: [email or web address]
== END ==
LOC: WI 12:02
PROVIDERS: ATTEND Family Medicine
DX: Z12.31 Encounter for screening mammogram for malignant neoplasm of breast (principal)
CPT/HCPCS: 77067

== ENCOUNTER 2019-05-01 07:26 | Day surgery (SDC) | payer MEDICARE, MEDICAID ==
[~2019-05-01 07:26] MED LIST: CHONDR SU A NA/HYALUR INTRAOC KIT (SURGICARE) ONE; EPINEPHRINE INJ/PF 1 MG/1 ML AMPULE ONE; KETOROLAC TROMETHAMINE 0.45% 4 DROP/0.4 ML DROPERETTE OD PRN; LIDOCAINE 1%/PHENYLEPHRINE 1.5% 1 ML VIAL ONE
[2019-05-01] MEDS: TROPICAMIDE 1% OPH SOLN 3 ML OD PRN ×3 (07:40→08:00)
[2019-05-01] MEDS: TETRACAINE HCL 0.5% OPH SOLN 4 ML OD PRN ×3 (07:40→08:10)
[2019-05-01] MEDS: BESIFLOXACIN HCL 0.6% OPH SUSP 5 ML BOTTLE OD PRN ×4 (07:40→08:28)
[2019-05-01] MEDS: CYCLOPENTOLATE 0.2%/PHENYLEPHRINE 1% OPH SOLN 2 ML OD PRN ×3 (07:40→08:00)
[2019-05-01] MEDS ORDERED: MIDAZOLAM 2 MG/2 ML INJ ONE (08:02)
[2019-05-01] MEDS: DORZOLAMIDE HCL 2%/TIMOLOL MALEAT 0.5% OPH SOLN 10 ML OD PRN ×2 (08:28)
--- NOTE | 2019-05-02 07:41 | Operative Report ---
Operative Report-[facility] Operative Report: DATE OF SURGERY: 05/01/2019 PREOPERATIVE DIAGNOSIS: Cataract, right eye POSTOPERATIVE DIAGNOSIS: Cataract, right eye OPERATION: Cataract extraction with insertion of an IOL of the right eye. Intraocular Lens Model: [21.0 sn60wf] Reason for surgery was trouble seeing small print SURGEON: Chris Perez MD ANESTHESIA: Topical PROCEDURE: After obtaining appropriate consent, the patient's right eye was prepped and draped in a sterile fashion as well as the surgeon in the sterile manner and cataract surgery was started. First a paracentesis blade was used to make a side-port incision. Viscoelastic was used to inflate the anterior chamber. Next a 2.4 mm incision was made with a 2.4 mm blade, clear corneal temporarily. A continuous capsulorrhexis was made using a cystotome and Utrata forceps. Following this hydrodissection was carried out to make the sam fully loose and mobile and it was rotated. Following this, a divide and conquer technique was used to phacoemulsify the sam. The remaining cortex was removed with an irrigation/aspiration. Provisc was instilled into the capsular bag to inflate the bag. The intraocular lens was placed. The remaining viscoelastic material was removed with irrigation/aspiration. Following this, the incision was found to be watertight. Besivance and Cosopt was instilled into the eye and a protective shield was placed over the eye. The patient was reurned to the postoperative recovery in a stable condition.
== END 2019-05-01 09:45 | disposition home or self-care (01) ==
LOC: SC 07:26
PROVIDERS: ATTEND Internal Medicine
DX: H25.11 Age-related nuclear cataract, right eye (principal); F17.210 Nicotine dependence, cigarettes, uncomplicated; Z96.1 Presence of intraocular lens
CPT/HCPCS: 66984; V2632; J2250; J3490 ×2; A9270; J0171; J2370; 142

== ENCOUNTER 2019-07-07 07:45 | Day surgery (SDC) | payer MEDICARE, MEDICAID ==
[~2019-07-07 07:45] MED LIST changes: -CHONDR SU A NA/HYALUR INTRAOC KIT (SURGICARE) ONE; -EPINEPHRINE INJ/PF 1 MG/1 ML AMPULE ONE; -KETOROLAC TROMETHAMINE 0.45% 4 DROP/0.4 ML DROPERETTE OD PRN; -LIDOCAINE 1%/PHENYLEPHRINE 1.5% 1 ML VIAL ONE; +PROPOFOL INJ 200 MG/20 ML VIAL IV ONE
[2019-07-07 09:59] VITALS: BP 129/77
--- NOTE | 2019-07-07 12:46 | Operative Report ---
Operative Report DATE OF SURGERY: 07/07/19 Operative Report: The risks, benefits and alternatives of the procedure including the risk of bleeding, perforation requiring surgery have been explained to the patient in detail and informed consent has been obtained. The patient is taken back to the endoscopy suite and placed in a left, lateral decubital position. Timeout was called. Propofol medication is administered. Rectal examination is done which did not reveal any masses, tears or fissures. An Olympus videoscope was introduced into the patient's rectum. Scope was then carefully advanced all the way to the cecum. Cecum was identified by the usual anatomical landmarks including the ileocecal valve as well as the appendiceal office. Photodocumentation is obtained. Scope was then sequentially pulled back via the various segments of the colon including the ascending colon, hepatic flexure, transverse colon, splenic flexure, descending colon and finally into the rectosigmoid portions of the colon. Retroflexion maneuver is performed. PREOPERATIVE DIAGNOSIS: Colorectal cancer screening POSTOPERATIVE DIAGNOSIS: Diverticulosis without any evidence of diverticulitis. Internal hemorrhoids. Small sessile polyp that was removed via biopsy forceps for retrieval OPERATION: Colonoscopy with biopsy SURGEON: SUKHWINDER VELASQUEZ ANESTHESIA: LMAC TISSUE REMOVED OR ALTERED: As noted above. COMPLICATIONS: None. ESTIMATED BLOOD LOSS: None. INTRAOPERATIVE FINDINGS: As noted above. PROCEDURE: Patient tolerated the procedure well. No immediate postprocedure complications are noted. Patient is discharged in good condition. Discharge date 07/07/2019. Discharge diet: Regular. Discharge activity: Regular. 2 to 3-week follow-up to discuss findings. Patient is instructed to call the office or proceed to the emergency room should there be any further problems or questions. Wait on the pathology. May need 3 to 5-year surveillance colonoscopy.
== END 2019-07-07 09:59 | disposition home or self-care (01) ==
LOC: END 07:45
PROVIDERS: ATTEND Internal Medicine Gastroenterology
DX: Z12.11 Encounter for screening for malignant neoplasm of colon (principal); D12.7 Benign neoplasm of rectosigmoid junction; K57.30 Diverticulosis of large intestine without perforation or abscess without bleeding; K64.8 Other hemorrhoids; Z86.010 Personal history of colon polyps; E78.2 Mixed hyperlipidemia; I10 Essential (primary) hypertension; Z79.899 Other long term (current) drug therapy
CPT/HCPCS: 45380; 88305 ×2; 00811; J2704; 811